=== PATIENT | male | born 1970 | race Caucasian/White ===

== ENCOUNTER → 2016-12-28 | Outpatient (CLI) | payer BC, MEDICARE ==
[2016-12-28 15:48] LABS: ABSOLUTE BASOPHILS # (AUTO) 0.1 10^3/uL (0.0-0.2); ABSOLUTE EOSINOPHILS # (AUTO) 0.2 10^3/uL (0.0-0.6); ABSOLUTE LYMPHOCYTES (AUTO) 1.1 10^3/uL (0.5-4.7); ABSOLUTE MONOCYTES (AUTO) 0.5 10^3/uL (0.1-1.4); ABSOLUTE NEUT (AUTO) 7.3 10^3/uL (1.7-8.2); EOSINOPHILS % (AUTO) 2.6 % (0-6); HEMATOCRIT 42.7 % (37.9-51.0); HEMOGLOBIN 14.2 g/dL (13.5-17.0); HGB HCT DIFFERENCE -0.1; LYMPHOCYTES % (AUTO) 12.1 % (13-45); MEAN CORPUSCULAR HEMOGLOBIN 24.7 pg (27.0-33.4); MEAN CORPUSCULAR HGB CONC 33.2 g/dL (32.0-36.0); MEAN CORPUSCULAR VOLUME 75 fl (80-97); MONOCYTES % (AUTO) 5.2 % (3-13); RED BLOOD COUNT 5.73 10^6/uL (4.35-5.55); RED CELL DISTRIBUTION WIDTH 18.3 % (11.5-14.0); SEGMENTED NEUTROPHILS % (AUTO) 79.1 % (42-78); WHITE BLOOD COUNT 9.2 10^3/uL (4.0-10.5)
--- NOTE | 2016-12-28 16:08 | RADIOLOGY REPORT (SQ) ---
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 NUMBER OF VIEWS: Three views. TECHNIQUE: AP, lateral and oblique radiographic images acquired of the right foot. LIMITATIONS: None. FINDINGS: There has been amputation of the 1st phalanx. No evidence of active periosteal reaction o r foreign body. There is swelling over the plantar surface adjacent to the skin ulcer. IMPRESSION: No evidence of osteomyelitis. TECHNICAL DOCUMENTATION: JOB ID: [id number] [employer]- All Rights Reserved
[2016-12-28 16:14] LABS: ALANINE AMINOTRANSFERASE 25 U/L (21-72); ALBUMIN 4.2 g/dL (3.5-5.0); ALKALINE PHOSPHATASE 81 U/L (38-126); ANION GAP 12 (5-19); ASPARTATE AMINO TRANSFERASE 22 U/L (17-59); BILIRUBIN,DIRECT 0.4 mg/dL (0.0-0.4); BILIRUBIN,TOTAL 0.8 mg/dL (0.2-1.3); BLOOD UREA NITROGEN 12 mg/dL (7-20); C-REACTIVE PROTEIN 17.7 mg/L (<10.0); CALCIUM 8.8 mg/dL (8.4-10.2); CARBON DIOXIDE 24 mmol/L (22-30); CHLORIDE 101 mmol/L (98-107); GLUCOSE 251 mg/dL (75-110); POTASSIUM 4.7 mmol/L (3.6-5.0); SODIUM 136.6 mmol/L (137-145); TOTAL PROTEIN 6.8 g/dL (6.3-8.2)
[2016-12-28 16:25] LABS: ERYTHROCYTE SEDIMENTATION RATE 23 mm/hr (0-15)
== END ==
LOC: OD 14:46
PROVIDERS: ATTEND Nurse Practitioner Family
DX: E11.621 Type 2 diabetes mellitus with foot ulcer (principal); L97.512 Non-pressure chronic ulcer of other part of right foot with fat layer exposed
CPT/HCPCS: 36415; 80053; 83036; 85025; 85652; 86140

== ENCOUNTER → 2017-01-03 | Outpatient (CLI) | payer BC, MEDICARE ==
--- NOTE | 2017-01-04 10:56 | XCELERA REPORT ---
[address] [address] Lower Extremity Arterial Evaluation Name: ROSE ANTONIO Age: 46 yrs Gender: Male : 1970 Patient Status: Outpatient Patient Location: Study Date: 01/03/2017 01:02 PM Procedure: A color flow and duplex scan of the lower extremity arteries was performed bilaterally with velocity and waveform anaylsis. Ankle brachial indicies performed. Reason For Study: RIGHT FOOT ULCER Ordering Physician: STACIE AGARWAL Performed By: Shan Rivera Measurements and Calculations Right Left MUSIC CRITIC PSV 177.8 159.4 cm/sec Prox PFA PSV 114.5 115.5 cm/sec Dist SFA PSV -129.2 -119.4 cm/sec Dist Pop A PSV 165.9 106.9 cm/sec Dist OCTAVIA PSV 131.4 126.5 cm/sec Dist AVIONIC TECHNICIAN PSV 193.5 -99.3 cm/sec Venkatesh Pedis PSV 152.8 98.7 cm/sec Right Side Arterial Evaluation Normal velocity and triphasic waveforms noted from the Common Femoral artery to the Popliteal artery . Biphasic in the infrgaeniculte arteies. 0-19% stenosis at the infrageniculate vessels. Ankle Brachial index is 1.16. Left Side Arterial Evaluation Normal velocity and triphasic waveforms noted from the Common Femoral artery to the infregeniculate vessels. 0 % stenosis noted. Ankle Brachial index is 0.98. Interpretation Summary Mild hemodynamically significant lesions in the right lower extremity only, on duplex imaging, at rest. No hemodynamically significant lesions in the left lower extremity only, on duplex imaging, at rest. : STACIE AGARWAL > Jordin Stanford
== END ==
LOC: SP 12:41
PROVIDERS: ATTEND Nurse Practitioner Family
DX: L97.512 Non-pressure chronic ulcer of other part of right foot with fat layer exposed (principal)
CPT/HCPCS: 93925

== ENCOUNTER → 2017-03-05 | Outpatient (CLI) | payer BC, MEDICARE ==
--- NOTE | 2017-03-05 17:41 | RADIOLOGY REPORT (SQ) ---
EXAM DESCRIPTION: FOOT RIGHT COMPLETE COMPLETED DATE/TIME: 03/05/2017 5:25 pm REASON FOR STUDY: NON-PRS CHRONIC ULCER OTH PRT RIGHT FOOT W FAT LAYER EXPOSED L97.512 NON-PRS SURFACE GRINDER SARA ULCER OTH PRT RIGHT FOOT W FAT LAYER COMPARISON: 12/28/2016 NUMBER OF VIEWS: Three views. TECHNIQUE: AP, lateral and oblique radiographic images acquired of the right foot. LIMITATIONS: None. FINDINGS: MINERALIZATION: Normal. BONES: There is amputation of the great toe. There is fusion of 2nd proximal interphalangeal joint. There is no evidence of osteomyelitis. No acute abnormality is seen. JOINTS: No effusions. SOFT TISSUES: No soft tissue swelling. No foreign body. OTHER: No other significant finding. IMPRESSION: Findings as described. There is no acute abnormality. TECHNICAL DOCUMENTATION: JOB ID: [id number] [employer]- All Rights Reserved
[2017-03-05 18:38] LABS: ABSOLUTE BASOPHILS # (AUTO) 0.1 10^3/uL (0.0-0.2); ABSOLUTE EOSINOPHILS # (AUTO) 0.3 10^3/uL (0.0-0.6); ABSOLUTE LYMPHOCYTES (AUTO) 1.3 10^3/uL (0.5-4.7); ABSOLUTE MONOCYTES (AUTO) 0.7 10^3/uL (0.1-1.4); ABSOLUTE NEUT (AUTO) 8.8 10^3/uL (1.7-8.2); BASOPHILS % (AUTO) 0.5 % (0-2); EOSINOPHILS % (AUTO) 2.5 % (0-6); HEMATOCRIT 38.1 % (37.9-51.0); HEMOGLOBIN 12.8 g/dL (13.5-17.0); HGB HCT DIFFERENCE 0.3; LYMPHOCYTES % (AUTO) 11.5 % (13-45); MEAN CORPUSCULAR HEMOGLOBIN 25.2 pg (27.0-33.4); MEAN CORPUSCULAR HGB CONC 33.7 g/dL (32.0-36.0); MEAN CORPUSCULAR VOLUME 75 fl (80-97); MONOCYTES % (AUTO) 6.6 % (3-13); RED BLOOD COUNT 5.08 10^6/uL (4.35-5.55); RED CELL DISTRIBUTION WIDTH 17.3 % (11.5-14.0); SEGMENTED NEUTROPHILS % (AUTO) 78.9 % (42-78); WHITE BLOOD COUNT 11.2 10^3/uL (4.0-10.5)
[2017-03-05 18:46] LABS: ALANINE AMINOTRANSFERASE 42 U/L (21-72); ALBUMIN 3.5 g/dL (3.5-5.0); ALKALINE PHOSPHATASE 72 U/L (38-126); ANION GAP 10 (5-19); ASPARTATE AMINO TRANSFERASE 24 U/L (17-59); BILIRUBIN,DIRECT 0.4 mg/dL (0.0-0.4); BILIRUBIN,TOTAL 0.7 mg/dL (0.2-1.3); BLOOD UREA NITROGEN 14 mg/dL (7-20); C-REACTIVE PROTEIN 11.7 mg/L (<10.0); CALCIUM 8.3 mg/dL (8.4-10.2); CARBON DIOXIDE 25 mmol/L (22-30); CHLORIDE 101 mmol/L (98-107); CREATININE RESULT 0.74 mg/dL (0.52-1.25); GLUCOSE 249 mg/dL (75-110); POTASSIUM 4.3 mmol/L (3.6-5.0); SODIUM 135.7 mmol/L (137-145); TOTAL PROTEIN 5.5 g/dL (6.3-8.2)
[2017-03-05 19:26] LABS: ERYTHROCYTE SEDIMENTATION RATE 15 mm/hr (0-15)
== END ==
LOC: WC 16:36
PROVIDERS: ATTEND Nurse Practitioner Family
DX: L97.512 Non-pressure chronic ulcer of other part of right foot with fat layer exposed (principal)
CPT/HCPCS: 36415; 80053; 85025; 85652; 86140

== ENCOUNTER 2017-04-02 20:57 | Emergency (ER) | payer BC, MEDICARE ==
[2017-04-02 22:32] LABS: ABSOLUTE BASOPHILS # (AUTO) 0.1 10^3/uL (0.0-0.2); ABSOLUTE EOSINOPHILS # (AUTO) 0.3 10^3/uL (0.0-0.6); ABSOLUTE LYMPHOCYTES (AUTO) 0.9 10^3/uL (0.5-4.7); ABSOLUTE MONOCYTES (AUTO) 0.7 10^3/uL (0.1-1.4); ABSOLUTE NEUT (AUTO) 11.7 10^3/uL (1.7-8.2); BASOPHILS % (AUTO) 0.8 % (0-2); HEMATOCRIT 41.5 % (37.9-51.0); HEMOGLOBIN 14.1 g/dL (13.5-17.0); HGB HCT DIFFERENCE 0.8; LYMPHOCYTES % (AUTO) 6.5 % (13-45); MEAN CORPUSCULAR HEMOGLOBIN 25.3 pg (27.0-33.4); MEAN CORPUSCULAR HGB CONC 33.9 g/dL (32.0-36.0); MEAN CORPUSCULAR VOLUME 75 fl (80-97); MONOCYTES % (AUTO) 5.3 % (3-13); RED BLOOD COUNT 5.55 10^6/uL (4.35-5.55); RED CELL DISTRIBUTION WIDTH 16.8 % (11.5-14.0); SEGMENTED NEUTROPHILS % (AUTO) 85.4 % (42-78); WHITE BLOOD COUNT 13.7 10^3/uL (4.0-10.5)
[2017-04-02] MEDS ORDERED: NORMAL SALINE 1000 ML 1,000 ML IV ONE (22:50)
[2017-04-02] MEDS ORDERED: HYDROMORPHONE HCL INJ/PF 2 MG/ML AMPULE IV ONE (22:50)
[2017-04-02] MEDS ORDERED: ONDANSETRON HCL INJ/PF 4 MG/2 ML SDV IV ONE (22:50)
[2017-04-02 22:53] LABS: ALANINE AMINOTRANSFERASE 47 U/L (21-72); ALBUMIN 4.4 g/dL (3.5-5.0); ALKALINE PHOSPHATASE 91 U/L (38-126); ANION GAP 14 (5-19); ASPARTATE AMINO TRANSFERASE 29 U/L (17-59); BILIRUBIN,DIRECT 0.4 mg/dL (0.0-0.4); BILIRUBIN,TOTAL 0.8 mg/dL (0.2-1.3); BLOOD UREA NITROGEN 11 mg/dL (7-20); CARBON DIOXIDE 25 mmol/L (22-30); CHLORIDE 102 mmol/L (98-107); CREATININE RESULT 0.73 mg/dL (0.52-1.25); GLUCOSE 237 mg/dL (75-110); LIPASE 43.2 U/L (23-300); POTASSIUM 4.4 mmol/L (3.6-5.0); SODIUM 141.1 mmol/L (137-145); TOTAL PROTEIN 7.1 g/dL (6.3-8.2)
--- NOTE | 2017-04-02 22:54 | ER Document Report ---
ED General - General Chief Complaint: Abdominal Pain Stated Complaint: ABDOMINAL PAIN Time Seen by Provider: 04/02/17 22:45 Notes: Patient is a 46-year-old male who presents with complaint of severe abdominal pain and vomiting 2. No fevers. No blood in his emesis. No blood in the stool. He says the pain started approximately 2 hours ago. Pain is only in the upper abdomen. No pain in the lower abdomen. He denies ever having pain like this before. 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 He still has his gallbladder. No other abdominal surgeries. No complications since having the Itzel-en-Y performed. TRAVEL OUTSIDE OF THE [place] IN LAST 30 DAYS: No - Related Data Allergies/Adverse Reactions: No Known Allergies Allergy (Unverified 04/02/17 21:33) Past Medical History - Social History Smoking Status: Never Smoker Chew tobacco use (# tins/day): Yes Frequency of alcohol use: None Drug Abuse: None Family History: Reviewed & Not Pertinent Patient has suicidal ideation: No Patient has homicidal ideation: No Renal/ Medical History: Denies: Hx Peritoneal Dialysis Past Surgical History: Reports: Hx Abdominal Surgery Review of Systems - Review of Systems Notes: My Normal Review Basic REVIEW OF SYSTEMS: CONSTITUTIONAL : Denies fever, chills, or sweats. Denies recent illness. EENT: Denies eye, ear, throat, or mouth pain or symptoms. Denies nasal or sinus congestion. CARDIOVASCULAR: Denies chest pain. RESPIRATORY: Denies cough, cold, or chest congestion. Denies shortness of breath, difficulty breathing, or wheezing. GASTROINTESTINAL: Moderate upper abdominal pain. Some vomiting MUSCULOSKELETAL: Denies neck or back pain or joint pain or swelling. SKIN: Denies rash or skin lesions. NEUROLOGICAL: Denies altered mental status or loss of consciousness. Denies headache. Denies weakness or paralysis or loss of use of either side. Denies problems with gait or speech. Denies sensory or motor loss. ALL OTHER SYSTEMS REVIEWED AND NEGATIVE. Physical Exam - Vital signs Vitals: Temp Pulse Resp BP Pulse Ox 97.8 F 64 22 H 189/61 H 99 04/02/17 21:34 04/02/17 21:34 04/02/17 21:34 04/02/17 21:34 04/02/17 21:34 - Notes Notes: General Appearance: Well nourished, alert, cooperative, no acute distress, moderate obvious discomfort. Vitals: reviewed, See vital signs table. Head: no swelling or tenderness to the head Eyes: PERRL, EOMI, Conjuctiva clear Mouth: No decreasd moisture Neck: Supple, no neck tenderness, No thyromegaly Lungs: No wheezing, No rales, No rhonci, No accessory muscle use, good air exchange bilaterally. Heart: Normal rate, Regular rythm, No murmur, no rub Abdomen: Normal BS, soft, No rigidity, moderate upper abdominal tenderness palpation it is worse of the epigastric and right upper quadrant area., Mild guarding, no rebound, no abdominal masses, obese abdomen Extremities: strength 5/5 in all extremities, good pulses in all extremities, no swelling or tenderness in the extremities, no edema. Skin: warm, dry, appropriate color, no rash Neuro: speech clear, oriented x 3, normal affect, responds appropriately to questions. Course - Re-evaluation Re-evalutation: 04/03/17 00:45 On reevaluation patient's abdominal exam is benign. He says he still has just a small amount of soreness but no severe pain as he had before. Based on his initial exam and his exam I think closed-loop obstruction is highly unlikely. On ultrasound there is seeing some cystic-like structure. I will obtain a oral and IV contrast and CT of the abdomen pelvis to make sure there is no type of gastric leak in conjunction with this previous surgery and also to evaluate the rest of his abdomen pelvis to see if there is any concerning pathology as to why he had vomiting earlier today. 04/03/17 02:33 Since abdominal pain is started to return. On exam pain is mostly in the central abdomen. Lower abdomen remains nontender. I have ordered pain medicine. We will send the patient a CT scan as he is now done drinking his p.o. contrast. 04/03/17 04:[address] scan is come back and show some inflammation of the gallbladder without pericholecystic fluid or stones. He does have an elevated white blood cell count but his liver enzymes are normal. He has had some recurrent pain. His pain does respond with pain medicine but not times will return after the pain medicine wears off. I am waiting to hear back from the bariatric surgeon at [facility] to get further recommendations. 04/03/17 05:13 Patient is now been pain-free for several hours. He said no further vomiting. He feels that he is back to normal. On exam he has no reproducible pain to palpation now. I did call [facility] and spoke with Dr. Singh, surgeon covering for bariatric surgery. Reviewed the findings on CT scan as well as the patient's laboratory evaluation and current physical exam evaluation and the patient's course while here in the ER. At this time he agrees that we can probably follow the patient about patiently. I think this is appropriate as patient looks very well and his CT scan is negative except for just mild inflammation of the gallbladder. At this time we will keep the patient on the nonfat diet. Encouraged him to avoid spicy foods as well. Dr. Singh took down the patient's information and says that the office will call him and most likely for him and this . I explained this to the patient and his and they are agreeable to plan. I informed him to return to the ER immediately if he has recurrent vomiting, pain in his abdomen again, any fevers, or feels unwell. Dictation of this chart was performed using voice recognition software; therefore, there may be some unintended grammatical errors. - Vital Signs Vital signs: Temp Pulse Resp BP Pulse Ox 97.8 F 64 15 147/76 H 94 04/02/17 21:34 04/02/17 21:34 04/03/17 04:01 04/03/17 04:01 04/03/17 04:01 - Laboratory Result Diagrams: 04/02/17 22:10 04/02/17 22:10 Laboratory results interpreted by me: 04/02/17 04/02/17 04/02/17 22:10 22:10 23:00 WBC 13.7 H MCV 75 L MCH 25.3 L RDW 16.8 H Seg Neutrophils % 85.4 H Lymphocytes % 6.5 L Absolute Neutrophils 11.7 H Glucose 237 H Urine Protein 100 H Urine Glucose (UA) >=500 H Urine Ketones TRACE H Urine Urobilinogen 4.0 H Discharge - Discharge Clinical Impression: Abdominal pain Qualifiers: Abdominal location: upper abdomen, unspecified Qualified Code(s): R10.10 - Upper abdominal pain, unspecified Vomiting Qualifiers: Vomiting type: unspecified Vomiting Intractability: non-intractable Nausea presence: with nausea Qualified Code(s): R11.2 - Nausea with vomiting, unspecified Condition: Good Disposition: HOME, SELF-CARE Additional Instructions: ABDOMINAL PAIN: There are many causes of abdominal pain. Pain can mean a serious problem requiring surgery (such as appendicitis). It can also be an innocent problem that goes away on its own (such as a viral infection). Often, time must pass to determine the cause of pain. The physician does not feel that hospitalization is necessary, at present. Things may change within the next 24 hours. Call the doctor or come back for re- examination if any problems occur, such as: (1) Pain that becomes more severe, steady, or becomes concentrated in one specific area. Also, pain that is more severe with movement or coughing. (2) Vomiting that persists or becomes more frequent. (3) Blood in the vomitus, urine, or bowel movements. Blood in the stool may have a tarry or black appearance. (4) Shaking chills or fever greater than 100 degrees F. (5) The abdomen becomes more distended or swollen. (6) Bowel movements cease. (7) Failure to improve as expected. NORMAL EXAM AND WORKUP: At this time, your examination and workup show no significant abnormality. No significant abnormal physical findings are noted. All laboratory, EKG, and imaging (x-ray, CT scans, ultrasound) studies that were ordered show no significant abnormality except for mild inflammation around the gallbladder Although your examination and all studies that were ordered showed no significant abnormal finding, there are no examinations and no studies that are 100% accurate. There is always the possibility that some abnormality could exist and not be detected with physical examination or within the limits and capabilities of laboratory and other studies. You should return or follow up as you were instructed on your visit today for further evaluation if your symptoms do not resolve. ANTINAUSEA MEDICATION: You have been given a medication to suppress nausea and vomiting. This type of medication can be given as a shot, pill, or suppository. It will usually last for many hours. Pills and shots usually last six to eight hours, suppositories last about 12 hours. For the typical illness, only one or two doses of the medication may be necessary. Mild lightheadedness may occur. This type of medicine can cause drowsiness. Do not drive or operate dangerous machinery while under its influence. Do not mix with alcohol. See your doctor at once if you have muscle spasms or tightness, or uncontrollable motions (particularly of the neck, mouth, or jaw). Persistent vomiting or severe lightheadedness should also be evaluated by the physician. FOLLOW-UP CARE: If you have been referred to a physician for follow-up care, call the physician s office for an appointment as you were instructed or within the next two days. If you experience worsening or a significant change in your symptoms, notify the physician immediately or return to the Emergency Department at any time for re-evaluation. FOLLOW-UP CARE: I have spoken with Dr. Singh at [facility]. He took down you information and will have the surgery clinic call you to give you an appointment this week. Please return to the ER immediately if you have recurrent pain, vomiting, fevers, or feel unwell. Please eat a very bland diet. Please avoid fired foods, fatty foods, spicy foods. Forms: Special Work Note
[2017-04-02 22:58] LABS: HYPOCHROMASIA SLIGHT; MICROCYTOSIS 2+
[2017-04-02 22:59] LABS: OVALOCYTES SLIGHT; POIKILOCYTOSIS SLIGHT
[2017-04-02 23:24] LABS: APPEARANCE,URINE CLEAR; BILIRUBIN,URINE NEGATIVE (NEGATIVE); GLUCOSE, URINE >=500 mg/dL (NEGATIVE); KETONES,URINE TRACE mg/dL (NEGATIVE); LEUKOCYTE ESTERASE,URINE NEGATIVE (NEGATIVE); NITRITE,URINE NEGATIVE (NEGATIVE); PROTEIN,URINE 100 mg/dL (NEGATIVE); URINE SPECIFIC GRAVITY 1.028
--- NOTE | 2017-04-02 23:28 | RADIOLOGY REPORT (SQ) ---
EXAM DESCRIPTION: ACUTE ABDOMEN SERIES COMPLETED DATE/TIME: 04/02/2017 11:18 pm REASON FOR STUDY: abdominal pain COMPARISON: None. NUMBER OF VIEWS: Three views. TECHNIQUE: Frontal chest, supine abdomen and upright/decubitus abdomen radiographic images acquired. LIMITATIONS: None. FINDINGS: CHEST: Lungs clear of infiltrates. FREE AIR: None. No abnormal gas collections. BOWEL GAS PATTERN: Nonobstructive pattern. No dilated loops or air fluid levels. CALCIFICATIONS: No suspicious calcifications. HARDWARE: None in the abdomen. SOFT TISSUES: No gross mass or suggestion of organomegaly. BONES: No acute fracture. No worrisome bone lesions. OTHER: No other significant finding. IMPRESSION: NO RADIOGRAPHIC EVIDENCE FOR ACUTE ABDOMINAL DISEASE. TECHNICAL DOCUMENTATION: JOB ID: [id number] [employer]- All Rights Reserved
--- NOTE | 2017-04-03 00:44 | RADIOLOGY REPORT (SQ) ---
EXAM DESCRIPTION: U/S ABDOMEN LTD W/DOPPLER COMPLETED DATE/TIME: 04/03/2017 12:32 am REASON FOR STUDY: abdominal pain COMPARISON: None. TECHNIQUE: Dynamic and static grayscale images acquired of the abdomen and recorded on PACS. Additio nal selected color Doppler and spectral images recorded. LIMITATIONS: Extremely poor visualization secondary to body habitus. FINDINGS: PANCREAS: Not visualized. LIVER: Marked fatty infiltration. No focal masses. LIVER VASCULATURE: Normal directional flow of the main portal vein and hepatic veins. GALLBLADDER: No stones. Normal wall thickness. No pericholecystic fluid. ULTRASOUND-DETECTED MCELROY'S SIGN: Negative. INTRAHEPATIC DUCTS AND COMMON DUCT: CBD and intrahepatic ducts normal caliber. No filling defects. INFERIOR VENA CAVA: Normal flow. AORTA: No aneurysm. RIGHT KIDNEY: Normal size. Normal echogenicity. No solid or suspicious masses. No hydronephrosis. No calcifications. PERITONEAL AND RIGHT PLEURAL SPACE: No ascites or effusions. OTHER: Questionable midline abdominal mass. IMPRESSION: Very limited study. Fatty infiltration of the liver. Questionable midline abdominal mass. TECHNICAL DOCUMENTATION: JOB ID: [id number]- All Rights Reserved
[2017-04-03] MEDS ORDERED: HYDROMORPHONE HCL INJ/PF 2 MG/ML AMPULE IV ONE (02:32)
--- NOTE | 2017-04-03 03:32 | RADIOLOGY REPORT (SQ) ---
EXAM DESCRIPTION: CT ABD/PELVIS WITH IV ORAL COMPLETED DATE/TIME: 04/03/2017 3:12 am REASON FOR STUDY: abdominal pain, vomiting, Hx of [place] Y COMPARISON: None. TECHNIQUE: CT scan of the abdomen and pelvis performed using helical scanning technique with dynamic intravenous contrast injection. With oral contrast. Images reviewed with lung, soft tissue, and bon e windows. Reconstructed coronal and sagittal MPR images reviewed. Delayed images for evaluation of t he urinary system also acquired. All images stored on PACS. All CT scanners at this facility use dose modulation, iterative reconstruction, and/or weight based d osing when appropriate to reduce radiation dose to as low as reasonably achievable (ALARA). [facility]: Dose Right [facility]: CareDose [facility]: Dose Right [facility]: Teradose 4D [facility]: Squirro CONTRAST TYPE AND DOSE: contrast/concentration: Isovue 370.00 mg/ml; Total Contrast Delivered: 100.0 ml; Total Saline Delivered: 61.0 ml RENAL FUNCTION: GFR > 60. RADIATION DOSE: Up-to-date CT equipment and radiation dose reduction techniques were employed. CTDIv ol: 29.5 - 29.5 mGy. DLP: 3437 mGy-cm.. LIMITATIONS: None. FINDINGS: LOWER CHEST: No significant findings. No nodules or infiltrates. LIVER: Normal size. No masses. No dilated ducts. SPLEEN: Normal size. No focal lesions. PANCREAS: No masses. No significant calcifications. No adjacent inflammation or peripancreatic fluid collections. Pancreatic duct not dilated. GALLBLADDER: Minimal inflammatory changes around the gallbladder. No identified stones. ADRENAL GLANDS: No significant masses or asymmetry. RIGHT KIDNEY AND URETER: No solid masses. No significant calcifications. No hydronephrosis or hyd roureter. LEFT KIDNEY AND URETER: No solid masses. No significant calcifications. No hydronephrosis or hydr oureter. AORTA AND VESSELS: No aneurysm. No dissection. Renal arteries, SMA, celiac without stenosis. RETROPERITONEUM: No retroperitoneal adenopathy, hemorrhage or masses. BOWEL AND PERITONEAL CAVITY: Gastric bypass anatomy. No obstruction. Fluid in the excluded stomach . APPENDIX: Normal. PELVIS: No mass. No free fluid. Normal bladder. ABDOMINAL WALL: No masses. No hernias. BONES: No significant or acute findings. OTHER: No other significant finding. IMPRESSION: Gastric bypass anatomy. No obstruction. Minimal inflammatory changes around the gallbladder without pericholecystic fluid. No identified sto alex. TECHNICAL DOCUMENTATION: JOB ID: [id number] Quality ID # [id number]: Final reports with documentation of one or more dose reduction techniques (e.g., Au tomated exposure control, adjustment of the mA and/or kV according to patient size, use of iterative reconstruction technique) 2010 [employer]- All Rights Reserved
[2017-04-03] MEDS ORDERED: ONDANSETRON ODT 4 MG TAB (6 TAB/DSPK) PO PRN (05:20)
[2017-04-03 06:22] VITALS: BP 154/72
== END 2017-04-03 06:23 | disposition home or self-care (01) ==
LOC: ER 20:57
DX: K81.9 Cholecystitis, unspecified (principal); D72.829 Elevated white blood cell count, unspecified; R10.11 Right upper quadrant pain; R10.816 Epigastric abdominal tenderness; R11.2 Nausea with vomiting, unspecified; Z98.890 Other specified postprocedural states
CPT/HCPCS: 96376; 99284; 96361; 96374; 36415; 83690; 85025; 80053; 81001; 74022; 76705; 93976; 74177; J1170 ×2; J2405; J7030

== ENCOUNTER 2018-05-28 06:32 | Emergency (ER) | payer OTHER, MEDICARE ==
[2018-05-28] MEDS ORDERED: CEPHALEXIN 500 MG CAPSULE PO ONE (07:11)
[2018-05-28] MEDS ORDERED: LIDOCAINE 1% INJ-PF (10 MG/ML) 30 ML SDV INJ ONE (07:12)
--- NOTE | 2018-05-28 07:12 | ER Document Report ---
ED Extremity Problem, Lower <MALACHI FRIED - Last Filed: 05/28/18 09:05> - General Mode of Arrival: Ambulatory Information source: Patient TRAVEL OUTSIDE OF THE [place] IN LAST 30 DAYS: No <GOLD LUU - Last Filed: 05/28/18 09:18> - General Chief Complaint: Toe Injury Stated Complaint: FALL/FOOT INJURY Time Seen by Provider: 05/28/18 06:45 Notes: Patient is a 47 year old male with diabetes (insulin pump), HTN, HLD presents to the emergency department complaining of a laceration on his right 2nd toe secondary a mechanical trip and fall. Patient states he fell to the floor and his right 2nd toe became caught in the elastic in his sweat pants and hyperextended. at bedside states the laceration began to bleed profusely. Patient denies any pain, further stating he has no sensations in his feet bilaterally. states the patient has had all the toes of his left foot amputated due to diabetes. She states she has had a fusion of his DIP joint of his right 2nd toe and believes the metal caused the laceration during the fall. When reviewing [facility] records, it shows the patient has a fusion of the right 2nd toe PIP joint. Patient is currently prescribed Trulicity. (GOLD LUU) - Related Data Allergies/Adverse Reactions: No Known Allergies Allergy (Verified 05/28/18 07:27) Past Medical History - General Information source: Patient - Social History Smoking Status: Unknown if Ever Smoked Frequency of alcohol use: None Family History: Reviewed & Not Pertinent - Past Medical History Cardiac Medical History: Reports: Hx Hypercholesterolemia, Hx Hypertension Endocrine Medical History: Reports: Hx Diabetes Mellitus Type 2 Past Surgical History: Reports: Hx Abdominal Surgery - Gastric Bypass, Hx Cholecystectomy - attempted laproscopic cholecystectomy in late 2016, Hx Orthopedic Surgery - Amputation of the right 1st toe. Amputation of all toes of the left foot. <GOLD LUU - Last Filed: 05/28/18 09:18> Review of Systems - Review of Systems Constitutional: No symptoms reported EENT: No symptoms reported Cardiovascular: No symptoms reported Respiratory: No symptoms reported Gastrointestinal: No symptoms reported Genitourinary: No symptoms reported Male Genitourinary: No symptoms reported Musculoskeletal: See HPI Skin: No symptoms reported Hematologic/Lymphatic: No symptoms reported Neurological/Psychological: No symptoms reported -: Yes All other systems reviewed and negative <GOLD LUU - Last Filed: 05/28/18 09:18> Physical Exam <GOLD LUU - Last Filed: 05/28/18 09:18> - Vital signs Vitals: Temp Pulse Resp BP Pulse Ox 98.2 F 86 18 177/72 H 95 05/28/18 06:33 05/28/18 06:33 05/28/18 06:33 05/28/18 06:33 05/28/18 06:33 - Notes Notes: GENERAL: Alert, interacts well. No acute distress. HEAD: Normocephalic, atraumatic. EYES: Right eye is opacified, consistent with history of blindness. Extraocular movements intact. ENT: Oral mucosa moist, tongue midline. NECK: Full range of motion. Supple. Trachea midline. LUNGS: Clear to auscultation bilaterally, no wheezes, rales, or rhonchi. No respiratory distress. HEART: Regular rate and rhythm. No murmurs, gallops, or rubs. ABDOMEN: Soft, obese, non-tender. Non-distended. Bowel sounds present in all 4 quadrants. EXTREMITIES: Moves all 4 extremities spontaneously. Right 1st toe amputation. Right 2nd digit contains a 2cm half circumferential laceration on the plantar aspect that extends medially under the DIP joint. All toes of left foot are amputated. No sensations of feet bilaterally, patient states this is chronic. NEUROLOGICAL: Alert and oriented x3. Normal speech. PSYCH: Normal affect, normal mood. SKIN: Warm, dry, normal turgor. (JUSGOLD) Course - Diagnostic Test Radiology reviewed: Image reviewed - X-ray shows amputation of the big toe, PIP joint fusion of the second toe without fracture or dislocation at the toe <MALACHI FRIED - Last Filed: 05/28/18 09:05> - Re-evaluation Re-evalutation: 05/28/18 09:06 PCT provided the patient with a postop shoe for walking after the wound was dressed. It fits well and prevents him from coming off the ball the foot and applying pressure on the sutured toe. (MALACHI FRIED) - Vital Signs Vital signs: Temp Pulse Resp BP Pulse Ox 98.2 F 85 20 163/69 H 96 05/28/18 06:33 05/28/18 08:33 05/28/18 08:33 05/28/18 08:33 05/28/18 08:33 Procedures - Laceration/Wound Repair Right Toe Time completed: 08:00 Wound length (cm): 2 Wound's Depth, Shape: Superficial, Linear Laceration pre-procedure: Sterile drapes applied, Shur-Clens applied Anesthetic type: Other - No anesthesia, patient has no sensation in the toes. Wound explored: Clean, No foreign body removed Irrigated w/ Saline (mLs): 30 Wound Debrided: none Wound Repaired With: Sutures Suture Size/Type: 5:0 Number of Sutures: 7 Layer Closure?: No Post-procedure wound care: Sterile dressing applied Post-procedure NV exam normal: No - Patient has no sensation to the feet due to DPN Complications: No <MALACHI FRIED - Last Filed: 05/28/18 09:05> Discharge <MALACHI FRIED - Last Filed: 05/28/18 09:05> <GOLD LUU - Last Filed: 05/28/18 09:18> - Discharge Clinical Impression: High blood pressure associated with diabetes, Diabetic peripheral neuropathy Laceration of second toe of right foot Qualifiers: Encounter type: initial encounter Qualified Code(s): S91.114A - Laceration without foreign body of right lesser toe(s) without damage to nail, initial encounter Condition: Stable Disposition: HOME, SELF-CARE Additional Instructions: Laceration Care Your laceration has been sutured to keep the skin edges aligned during healing. The time of suture removal depends on the nature and location of your cut. Please follow the care instructions the doctor has outlined for you and return for further care, according to the schedule you've been given. Keep the wound and dressing clean. Unless you were told otherwise, you may shower daily, blotting the wound dry with a clean, unused towel. At other times, If the dressing gets wet or blood soaked, remove it and blot the wound dry, then reapply a new dressing. Unless you were instructed otherwise, dressings should be changed at least daily. If any signs of infection occur (swelling, redness, increasing tenderness, red streaks, tender lumps in the armpit or groin above the laceration, or fever), see the doctor immediately. Take medication as prescribed. Keep the wound clean and dressed. Change the dressing every day. Use the postop shoe to protect the toe and prevent stretching the wound closure. Elevate your foot is much as possible over the next few days. Follow-up with your doctor in the next week to check the wound and decide on when to remove the sutures. RETURN TO THE EMERGENCY ROOM IF ANY NEW OR WORSENING SYMPTOMS. Prescriptions: Cephalexin Monohydrate [Keflex 500 mg Capsule] 500 mg PO QID #20 capsule Referrals: LOCALMD,NO [NO LOCAL MD] - Follow up as needed Scribe Attestation: 05/28/18 08:10 I personally performed the services described in the documentation, reviewed and edited the documentation which was dictated to the scribe in my presence, and it accurately records my words and actions. (MALACHI FRIED) Scribe Documentation - Scribe Written by Francisco:: Francisco Hung, 05/28/2018 07:21 acting as scribe for :: Sara <GOLD LUU - Last Filed: 05/28/18 09:18>
[2018-05-28 08:34] VITALS: BP 163/69
--- NOTE | 2018-05-28 08:45 | RADIOLOGY REPORT (SQ) ---
EXAM DESCRIPTION: TOE RIGHT COMPLETED DATE/TIME: 05/28/2018 7:03 am REASON FOR STUDY: caught toe in pants, ? broken, lac present COMPARISON: None. NUMBER OF VIEWS: Three views. TECHNIQUE: AP, lateral, and oblique images acquired of the right toes. LIMITATIONS: None. FINDINGS: MINERALIZATION: Normal. BONES: No acute fracture. Disarticulation at the 1st MTP joint. JOINTS: No effusions. SOFT TISSUES: No soft tissue swelling. No foreign body. OTHER: No other significant finding. IMPRESSION: No acute fracture. COMMENT: SITE OF TRAUMA/COMPLAINT MARKED/STAMP COMPLETED: None TECHNICAL DOCUMENTATION: JOB ID: [id number] [employer]- All Rights Reserved Reading location - IP/workstation name: [email or web address]
== END 2018-05-28 08:40 | disposition home or self-care (01) ==
LOC: ER 06:32
PROC: 0HQMXZZ Repair Right Foot Skin, External Approach (ICD-10-PCS; principal; 2018-05-28)
DX: S91.114A Laceration without foreign body of right lesser toe(s) without damage to nail, initial encounter (principal); W01.0XXA Fall on same level from slipping, tripping and stumbling without subsequent striking against object, initial encounter; E11.42 Type 2 diabetes mellitus with diabetic polyneuropathy; Z79.4 Long term (current) use of insulin; Z89.422 Acquired absence of other left toe(s); Z79.899 Other long term (current) drug therapy
CPT/HCPCS: 99283; 73660; 12001; J3490

== ENCOUNTER → 2018-08-03 | Outpatient (CLI) | payer OTHER, MEDICARE ==
--- NOTE | 2018-08-03 09:39 | RADIOLOGY REPORT (SQ) ---
EXAM DESCRIPTION: FOOT RIGHT COMPLETE COMPLETED DATE/TIME: 08/03/2018 9:08 am REASON FOR STUDY: L97.512 NON-PRS CHRONIC ULCER OTH PRT RIGHT FOOT W FAT LAYER EXPOSED L97.512 NON- PRS CHRONIC ULCER OTH PRT RIGHT FOOT W FAT LAYER E11.621 TYPE 2 DIABETES MELLITUS WITH FOOT ULCER COMPARISON: 05/28/2018 NUMBER OF VIEWS: Three views. TECHNIQUE: AP, lateral and oblique without weight bearing radiographic images acquired of the right foot. LIMITATIONS: None. FINDINGS: MINERALIZATION: Normal. BONES: Disarticulation 1st metatarsal phalangeal joint. Fusion across the PIP joint of seconds digit. Chronic midfoot degenerative changes. No evidence for osteomyelitis on plain radiographs. JOINTS: No erosions. No hoa-articular osteopenia. No chondrocalcinosis. SOFT TISSUES: No swelling. No calcifications. OTHER: No other significant finding. IMPRESSION: No evidence for osteomyelitis on plain radiographs. TECHNICAL DOCUMENTATION: JOB ID: [id number] [employer]- All Rights Reserved Reading location - IP/workstation name: [email or web address]
[2018-08-03 11:06] LABS: ABSOLUTE BASOPHILS # (AUTO) 0.1 10^3/uL (0.0-0.2); ABSOLUTE EOSINOPHILS # (AUTO) 0.3 10^3/uL (0.0-0.6); ABSOLUTE LYMPHOCYTES (AUTO) 1.2 10^3/uL (0.5-4.7); ABSOLUTE MONOCYTES (AUTO) 0.5 10^3/uL (0.1-1.4); ABSOLUTE NEUT (AUTO) 5.6 10^3/uL (1.7-8.2); BASOPHILS % (AUTO) 0.7 % (0-2); EOSINOPHILS % (AUTO) 3.9 % (0-6); HEMATOCRIT 35.9 % (37.9-51.0); HEMOGLOBIN 12.2 g/dL (13.5-17.0); LYMPHOCYTES % (AUTO) 15.3 % (13-45); MEAN CORPUSCULAR HEMOGLOBIN 25.6 pg (27.0-33.4); MEAN CORPUSCULAR HGB CONC 34.1 g/dL (32.0-36.0); MEAN CORPUSCULAR VOLUME 75 fl (80-97); MONOCYTES % (AUTO) 6.5 % (3-13); PLATELET COUNT 281 10^3/uL (150-450); RED BLOOD COUNT 4.79 10^6/uL (4.35-5.55); RED CELL DISTRIBUTION WIDTH 15.8 % (11.5-14.0); SEGMENTED NEUTROPHILS % (AUTO) 73.6 % (42-78); TOTAL CELLS COUNTED % (AUTO) 100 %; WHITE BLOOD COUNT 7.6 10^3/uL (4.0-10.5)
[2018-08-03 11:16] LABS: ALANINE AMINOTRANSFERASE 20 U/L (21-72); ALBUMIN 3.7 g/dL (3.5-5.0); ALKALINE PHOSPHATASE 79 U/L (38-126); ANION GAP 8 (5-19); ASPARTATE AMINO TRANSFERASE 19 U/L (17-59); BILIRUBIN,DIRECT 0.3 mg/dL (0.0-0.4); BILIRUBIN,TOTAL 0.7 mg/dL (0.2-1.3); BLOOD UREA NITROGEN 12 mg/dL (7-20); C-REACTIVE PROTEIN 41.2 mg/L (<10.0); CALCIUM 8.6 mg/dL (8.4-10.2); CARBON DIOXIDE 29 mmol/L (22-30); CHLORIDE 99 mmol/L (98-107); GLUCOSE 249 mg/dL (75-110); POTASSIUM 4.6 mmol/L (3.6-5.0); SODIUM 135.9 mmol/L (137-145); TOTAL PROTEIN 5.9 g/dL (6.3-8.2)
[2018-08-03 11:48] LABS: ERYTHROCYTE SEDIMENTATION RATE 45 mm/hr (0-15)
== END ==
LOC: WC 08:45
PROVIDERS: ATTEND Preventive Medicine Undersea and Hyperbaric Medicine
DX: L97.512 Non-pressure chronic ulcer of other part of right foot with fat layer exposed (principal); E11.621 Type 2 diabetes mellitus with foot ulcer
CPT/HCPCS: 36415; 80053; 85025; 85652; 86140

== ENCOUNTER 2020-03-17 18:50 | Emergency (ER) | payer OTHER, MEDICARE ==
--- NOTE | 2020-03-17 19:56 | ER Document Report ---
HPI - HPI Time Seen by Provider: 03/17/20 19:51 Pain Level: 2 Notes: 49-year-old male to the emergency department with complaints of right wrist pain and right hip pain after he slipped and fell in the bathtub tonight. He states he slipped and fell because the bathtub was really slippery. He denies hitting his head. He denies any loss of consciousness.. Patient states that he most of his pain is in his right wrist. He states he did fall out onto an outstretched hand. He denies any other injuries such as back pain chest pain neck pain abdominal pain. He has a past medical history significant for hypertension, coronary artery disease with stenting, hypercholesterolemia, venous stasis, peripheral vascular disease. He is on Brilinta. - CONSTITUTIONAL Constitutional: DENIES: Fever, Chills - EENT EENT: DENIES: Sore Throat, Ear Pain, Congestion - NEURO Neurology: DENIES: Headache - CARDIOVASCULAR Cardiovascular: DENIES: Chest pain - RESPIRATORY Respiratory: DENIES: Trouble Breathing, Coughing - GASTROINTESTINAL Gastrointestinal: DENIES: Abdominal Pain, Nausea, Patient vomiting, Diarrhea - MUSCULOSKELETAL Musculoskeletal: REPORTS: Extremity pain Notes: Right wrist pain, right hip pain - DERM Skin Color: Normal Skin Problems: None Past Medical History - General Information source: Patient - Social History Smoking Status: Never Smoker Chew tobacco use (# tins/day): Yes Frequency of alcohol use: None Drug Abuse: None Family History: Reviewed & Not Pertinent - Past Medical History Cardiac Medical History: Reports: Hx Hypercholesterolemia, Hx Hypertension Endocrine Medical History: Reports: Hx Diabetes Mellitus Type 2 Renal/ Medical History: Denies: Hx Peritoneal Dialysis Past Surgical History: Reports: Hx Abdominal Surgery - Gastric Bypass, Hx Cholecystectomy - attempted laproscopic cholecystectomy in late 2016, Hx Orthopedic Surgery - Amputation of the right 1st toe. Amputation of all toes of the left foot. Vertical Provider Document - CONSTITUTIONAL Agree With Documented VS: Yes Exam Limitations: No Limitations General Appearance: WD/WN, No Apparent Distress - INFECTION CONTROL TRAVEL OUTSIDE OF THE [place] IN LAST 30 DAYS: No - HEENT HEENT: Atraumatic, Normocephalic, PERRLA - NECK Neck: Normal Inspection, Supple - RESPIRATORY Respiratory: Breath Sounds Normal, No Respiratory Distress. negative: Rales, Rhonchi, Wheezing - CARDIOVASCULAR Cardiovascular: Regular Rate, Regular Rhythm, No Murmur - GI/ABDOMEN Gastrointestinal: Abdomen Soft, Abdomen Non-Tender - BACK Back: Normal Inspection. negative: CVA Tenderness-Right, CVA Tenderness-Left Course - Vital Signs Vital signs: Temp Pulse Resp BP Pulse Ox 99.7 F 95 20 167/70 H 99 03/17/20 18:55 03/17/20 18:55 03/17/20 18:55 03/17/20 18:55 03/17/20 18:55 Procedures - Immobilization Right Wrist Time completed: 22:14 Pre-Proc Neuro Vasc Exam: Normal Immobilizer type: Volar splint Performed by: PCT Post-Proc Neuro Vasc Exam: Normal, Unchanged from pre-exam Alignment checked and good: Yes Discharge - Discharge Clinical Impression: Fall Qualifiers: Encounter type: initial encounter Qualified Code(s): W19.XXXA - Unspecified fall, initial encounter Contusion, hip Qualifiers: Encounter type: initial encounter Laterality: right Qualified Code(s): S70.01XA - Contusion of right hip, initial encounter Wrist fracture, right Qualifiers: Encounter type: initial encounter Fracture type: closed Qualified Code(s): S62.101A - Fracture of unspecified carpal bone, right wrist, initial encounter for closed fracture Condition: Stable Disposition: HOME, SELF-CARE Instructions: Contusion ([facility]), Fracture ([facility]) Additional Instructions: Follow-up with orthopedist without fail. Wear splint to the right wrist without fail. There is a possible radius fracture there. Your ulna also has a little bit of movement backwards to suggest subluxation. There is no proximal fracture up towards the elbow. Hip x-ray was normal. Apply ice to both the hip and the wrist. Call the orthopedist tomorrow. Return if any worsening symptoms. Prescriptions: Hydrocodone/Acetaminophen [[facility] 5-325 mg Tablet] 1 tab PO TID #12 tablet Referrals: LESLIE LOVE DPM [ACTIVE STAFF] - Follow up in 3-5 days SANDRITA BAEZ MD [ACTIVE STAFF] - Follow up in 3-5 days (for orthopedic follow up)
--- NOTE | 2020-03-17 20:29 | RADIOLOGY REPORT (SQ) ---
EXAM DESCRIPTION: XR HIP 2 OR MORE VIEWS COMPLETED DATE/TME: 03/17/2020 19:56 CLINICAL HISTORY: 49 years, Male, hip pain COMPARISON: None. NUMBER OF VIEWS: 2 TECHNIQUE: 2 views of the right hip and pelvis were obtained. LIMITATIONS: None. FINDINGS: There is no bone or joint abnormality identified about the right hip with pelvis. There is degenerative spurring at the L4-L5 level. IMPRESSION: As above copyright 2010 [employer]- All Rights Reserved
--- NOTE | 2020-03-17 20:45 | RADIOLOGY REPORT (SQ) ---
EXAM DESCRIPTION: X-ray, three views of the right wrist CLINICAL HISTORY: 49 years Male, wrist pain/fall COMPARISON: None. FINDINGS: Diffuse soft tissue swelling is identified. There is dorsal subluxation of the ulna with respect to the radial ulnar joint. In addition there appears to be an ulnar plus variant. On one view there appears to be cortical disruption of the radial metaphysis extending horizontally across the metaphysis. However, this is not seen on any of the other views. Vascular calcifications are present. IMPRESSION: 1. Dorsal subluxation of the distal radial ulnar joint with ulnar plus variant. 2. Possible nondisplaced fracture of the radial metaphysis versus artifact.
--- NOTE | 2020-03-17 21:42 | RADIOLOGY REPORT (SQ) ---
EXAM DESCRIPTION: X-ray, two views of the right forearm CLINICAL HISTORY: 49 years Male, eval for possible proximal forearm fx COMPARISON: None. FINDINGS: Smooth periosteal thickening is seen involving the proximal radius and ulna. This suggest old injury. Vascular calcifications are noted. No acute fracture is identified. No air is seen in the soft tissues. No obvious abnormality at the elbow or wrist. IMPRESSION: No acute process.
[2020-03-18 02:57] VITALS: BP 160/72
== END 2020-03-17 22:38 | disposition home or self-care (01) ==
LOC: ER 18:50
DX: S70.01XA Contusion of right hip, initial encounter (principal); S62.101A Fracture of unspecified carpal bone, right wrist, initial encounter for closed fracture; W18.2XXA Fall in (into) shower or empty bathtub, initial encounter; E78.00 Pure hypercholesterolemia, unspecified; I10 Essential (primary) hypertension; E11.9 Type 2 diabetes mellitus without complications; Z98.84 Bariatric surgery status; Z90.49 Acquired absence of other specified parts of digestive tract
CPT/HCPCS: 99284